=== PATIENT | female | born 1965 | race Hispanic/Latino ===

== ENCOUNTER 2018-08-04 09:18 | Outpatient (CLI) | payer OTHER ==
--- NOTE | 2018-08-04 11:00 | MMO ---
BILATERAL SCREENING MAMMOGRAM: History: Annual screening exam. Comparison: 02-25-13, 05-24-14 This study is interpreted with the assistance of computer aided detection. FINDINGS: Scattered fibroglandular change of both breasts are present. There is no dominant mass, suspicious ca lcification or other signs of malignancy. IMPRESSION: BIRADS category 1 - negative. POS: [facility]
== END 2018-08-04 09:19 | disposition home or self-care (01) ==
LOC: SCSMAMMO 09:18
PROVIDERS: ATTEND Family Medicine
DX: Z12.31 Encounter for screening mammogram for malignant neoplasm of breast (principal)
CPT/HCPCS: 77067